=== PATIENT | female | born 1980 | race Two or more races ===

== ENCOUNTER 2018-12-01 21:27 | Emergency (ER) | payer MEDICAID, OTHER ==
[~2018-12-01] VITALS: Ht 170.2 cm; Wt 104.3 kg
[~2018-12-01 21:27] MED LIST: HYDR-4683 PO; IBUP800T24 PO
[2018-12-02] MEDS ORDERED: DexAMETHasone SOD PHOS 10MG/1ML VIAL INJ IM ONE (01:45)
[2018-12-02] MEDS ORDERED: HYDROcodone-ACET 10/325MG TAB PO ONE (01:45)
[2018-12-02 01:57] VITALS: BP 157/82
== END 2018-12-02 02:34 | disposition home or self-care (01) ==
LOC: ER 21:27
DX: S02.2XXA Fracture of nasal bones, initial encounter for closed fracture (principal); S00.03XA Contusion of scalp, initial encounter; Z90.49 Acquired absence of other specified parts of digestive tract; W19.XXXA Unspecified fall, initial encounter; Y93.89 Activity, other specified; Y99.8 Other external cause status; Y92.89 Other specified places as the place of occurrence of the external cause
CPT/HCPCS: 70450; 70486; 72125; 96372; 99284; J1100

== ENCOUNTER 2021-01-28 19:08 | Emergency (ER) | payer OTHER ==
[~2021-01-28] VITALS: Ht 172.7 cm; Wt 117.9 kg
[~2021-01-28 19:08] MED LIST changes: -HYDR-4683 PO; +HYDR-4833 PO; -IBUP800T24 PO; +IBUP800T27 PO
[2021-01-28] MEDS: cloNIDine HCL 0.1 MG TAB PO ONE ×2 (19:30→23:01)
[2021-01-28] MEDS ORDERED: ONDANSETRON HCL 4 MG/2 ML VIAL IV ONE (21:30)
[2021-01-28] MEDS ORDERED: MORPHINE SULFATE 4 MG/ML SYR/VIAL IV ONE (21:30)
[2021-01-28 21:49] LABS: Basophils # (auto) 0.1 10 ^3/uL (0-0.2); Basophils % (auto) 1.1 % (0.0-2.0); Eosinophils # (auto) 0.1 10 ^3/uL (0-0.8); Eosinophils % (auto) 2.1 % (0.0-7.0); Hematocrit 47.6 % (36.0-46.0); Hemoglobin 16.7 g/dL (12.2-16.2); Lymphocytes % (auto) 34.5 % (10.0-50.0); Mean Corpuscular Hemoglobin 30.8 pg (28.0-32.0); Mean Corpuscular Volume 88.1 fL (80.0-100.0); Monocytes # (auto) 0.4 10 ^3/uL (0-1.3); Monocytes % (auto) 7.3 % (0.0-12.0); Neutrophils # (auto) 3.3 10 ^3/uL (1.6-8.6); Nucleated Red Blood Cells % 0.1 %; Red Blood Cells 5.41 10^6/uL (4.0-5.20); Red Cell Distribution Width 13.4 % (11.8-14.3); White Blood Cell 5.9 10^3/uL (4.4-10.8)
[2021-01-28 22:09] LABS: Urine Bacteria FEW /hpf (None Seen); Urine Blood 1+ /uL (Negative); Urine Specific Gravity 1.044 (1.001-1.035); Urine WBC 1 /hpf (0 - 5)
[2021-01-28 22:09] LABS: Albumin 3.8 g/dL (3.4-5.0); BUN/Creatinine Ratio 18.1; Calcium 9.3 mg/dL (8.5-10.1); Potassium 3.8 mmol/L (3.5-5.1)
[2021-01-28 22:13] LABS: CRP High Sensitivity 0.54 mg/dL (< 0.3)
[2021-01-28 22:33] LABS: Bilirubin, Total 0.4 mg/dL (0.2-1.0); Total Protein 8.1 g/dL (6.4-8.2)
[2021-01-29 02:00] VITALS: BP 133/62
== END 2021-01-29 03:34 | disposition home or self-care (01) ==
LOC: ER 19:08
DX: R10.9 Unspecified abdominal pain (principal); R06.02 Shortness of breath; E11.9 Type 2 diabetes mellitus without complications; Z90.49 Acquired absence of other specified parts of digestive tract; Z88.1 Allergy status to other antibiotic agents
CPT/HCPCS: 36415; 71046; 74176; 80053; 81001; 82728; 82962; 85025; 85049; 86141; 87426; 96374; 96375; 99285; J2270; J2405

== ENCOUNTER 2024-12-24 00:17 | Emergency (ER) | payer OTHER ==
[~2024-12-24] VITALS: Ht 172.7 cm; Wt 95.0 kg
[~2024-12-24 00:17] MED LIST changes: +IBUP-1456 PO; -IBUP800T27 PO
[2024-12-24] MEDS: MORPHINE SULFATE 4 MG/ML SYR/VIAL IM ONE (00:30)
[2024-12-24] MEDS: ONDANSETRON ODT 4 MG TAB PO ONE (00:43)
[2024-12-24 00:50] LABS: Basophils # (auto) 0.1 10 ^3/uL (0-0.2); Basophils % (auto) 0.6 % (0.0-2.0); Eosinophils # (auto) 0 10 ^3/uL (0-0.8); Eosinophils % (auto) 0.5 % (0.0-7.0); Hematocrit 48.6 % (36.0-46.0); Hemoglobin 17.1 g/dL (12.2-16.2); Lymphocytes # (auto) 2.4 10 ^3/uL (0.4-5.4); Lymphocytes % (auto) 27.6 % (10.0-50.0); Mean Corpuscular Hemoglobin 30.5 pg (28.0-32.0); Mean Corpuscular Hgb Conc. 35.2 g/dL (32.0-36.0); Mean Corpuscular Volume 86.6 fL (80.0-100.0); Monocytes # (auto) 0.5 10 ^3/uL (0-1.3); Monocytes % (auto) 5.6 % (0.0-12.0); Neutrophils # (auto) 5.6 10 ^3/uL (1.6-8.6); Neutrophils % (auto) 65.7 % (37.0-80.0); Nucleated Red Blood Cells % 0.2 %; Platelet Count (auto) 260 10^3/uL (140-450); Red Cell Distribution Width 13.4 % (11.8-14.3); White Blood Cell 8.5 10^3/uL (4.4-10.8)
[2024-12-24] MEDS: MORPHINE SULFATE 4 MG/ML SYR/VIAL IV ONE (01:01)
[2024-12-24 01:09] LABS: Alanine Aminotransferase 16 U/L (7-40); Anion Gap 14 (5-15); Aspartate Aminotransferase 15 U/L (13-40); BUN/Creatinine Ratio 14.6 (10.0-20.0); Bilirubin, Total 0.7 mg/dL (0.2-1.0); Blood Urea Nitrogen 14 mg/dL (9-23); Calcium 10.4 mg/dL (8.7-10.4); Carbon Dioxide 23 mmol/L (20-31); Chloride 103 mmol/L (98-107); Sodium 140 mmol/L (136-145); Total Protein 8.2 g/dL (5.7-8.2)
[2024-12-24 01:13] LABS: Albumin 5.2 g/dL (3.2-4.8); Alkaline Phosphatase 44 U/L (46-116); Glucose 139 mg/dL (74-106); Potassium 3.1 mmol/L (3.5-5.1)
--- NOTE | 2024-12-24 01:35 | DVH ---
Exam: CT CT AB PEL WO CON-NO ORAL OR IV History: abd pain Comparison Study: None Technique: Multidetector spiral CT of the abdomen was performed from lung bases to pubic symphysis. I maging was performed without IV contrast. Axial, coronal and sagittal multiplanar reformats were obta ined from the axial data set by the technologist. Radiation Dose : 1. Abdomen/Pelvis: CTDIvol 17 mGy, DLP 966 mGy*cm. Findings: Evaluation of solid organs is limited due to lack of intravenous contrast use. Lung Bases: No acute or significant lung base finding. Normal heart size. No pleural or pericardial effusion. Liver: The liver is normal in size. No focal lesions. Gallbladder and Biliary Tree: Gallbladder is surgically absent. Spleen: Unremarkable Pancreas: The pancreas is grossly normal in appearance. Adrenal Glands: Unremarkable Kidneys: Kidneys are grossly normal without calculi or hydronephrosis. Bladder: Grossly unremarkable for degree of distention. Bowel: The stomach is grossly normal in appearance. Small bowel and colon are normal in caliber and d istribution. Normal appendix is visualized in the right lower quadrant without findings of appendicit is. Liquid stool throughout the colon. Ascites: Absent Lymphadenopathy: No mesenteric, retroperitoneal or periportal lymphadenopathy. Abdominal Wall and Mesentery: Unremarkable. Vasculature: The visualized abdominal aorta is normal in size and caliber. Evaluation of abdominal a nd pelvic vessels is limited due to lack of intravenous contrast. Pelvic Organs: Unremarkable Musculoskeletal: No aggressive focal bony lesions, acute fractures or dislocation. IMPRESSION: No acute abdominal or pelvic findings Liquid stool throughout the colon concerning for diarrheal state. END IMPRESSION:
--- NOTE | 2024-12-24 01:40 | ED.PDOC ---
History of Present Illness HPI Comments 44 y/o obese F presents with 3x day history of headache. She also endorses of 10/10 abdominal pain, with associated nausea, vomiting, and diarrhea, that began at around 2100, last night. She reports no modifiers. States on pain feeling similar to when she needed her gallbladder removed for in the past. Denies any bloody or bilious vomitus, urinary symptoms, fever, chills, dizziness, or further associated symptoms. Chief Complaint: Chest Pain Time Seen by MD: 00:20 Primary Care Provider: THOMAS Reviewed Notes: Nurses Notes, Medications, Allergies Allergies: Coded Allergies: Amoxicillin (Verified Allergy, Mild, 01/28/21) PT SATTES SHE GETS YEAST INFECTIONS WHEN TAKING AMOXICILLIN Home Meds Reported Medications Hydrocodone-Acetaminophen (Woodman 5/325MG) 1 Tab Tb, 1 TAB PO BIDP 07/22/13 Ibuprofen (Ibuprofen) 800 Mg Tab, 800 MG PO Q8HP, TAB 07/22/13 Information Source: Patient Mode of Arrival: Ambulatory Severity: Moderate Timing: Days Duration: Since onset Prehospital treatment: None Past Medical History PAST MEDICAL HISTORY: DM Surgical History: Cholecystectomy PRODUCTION INTERN History: No Pertinent PRODUCTION INTERN History Family History Family History: Family hx of heart stanley Social History Smoker: Non-Smoker Alcohol: Sober Drugs: Denies Drug Use Lives In: Home All Other Systems: Reviewed and Negative (Comprehensive systems review obtained and negative except for what is stated in the HPI.) Physical Exam General Appearance: Moderate Distress, Obese HEENT: Normal ENT Inspection, Pharynx Normal, TMs Normal Neck: Full Range of Motion, Non-Tender, Normal, Normal Inspection Respiratory: Chest Non-Tender, Lungs Clear, No Accessory Muscle Use, No Respiratory Distress, Normal Breath Sounds Cardiovascular: No Edema, No JVD, No Murmur, No Gallop, Normal Peripheral Pulses, Regular Rate/Rhythm Breast Exam: Deferred Gastrointestinal: Epigastric (mid-epigastric tenderness ), No Organomegaly, No Pulsatile Mass, Normal Bowel Sounds, Soft, Tenderness (mid-epigastric region ) Genitalia: Deferred Pelvic: Deferred Rectal: Deferred Extremities: No calf tenderness, Normal capillary refill, Normal inspection, Normal range of motion, Non-tender, No pedal edema Musculoskeletal : Apperance: Normal Neurologic: Alert, 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 Was a procedure done?: No Differential Dx Considerations may include: gastritis, gastroenteritis, GERD, PUD, cholelithiasis, viral syndrome, , UTI, among others X-Ray, Labs, Meds, VS Vital Signs Date Time Temp Pulse Resp B/P (MAP) Pulse Ox O2 Delivery O2 Flow Rate FiO2 12/24/24 01:01 122 22 138/95 12/24/24 00:23 110 12/24/24 00:17 97.8 122 22 138/95 (109) 100 97.8 Lab Test 12/24/24 01:33 12/24/24 00:32 Range/Units Troponin I High Sensitivity Pending < 3 L </=34 ng/L White Blood Count 8.5 4.4-10.8 10^3/uL Red Blood Count 5.60 H 4.0-5.20 10^6/uL Hemoglobin 17.1 H 12.2-16.2 g/dL Hematocrit 48.6 H 36.0-46.0 % Mean Corpuscular Volume 86.6 80.0-100.0 fL Mean Corpuscular Hemoglobin 30.5 28.0-32.0 pg Mean Corpuscular Hemoglobin Concent 35.2 32.0-36.0 g/dL Red Cell Distribution Width 13.4 11.8-14.3 % Platelet Count 260 140-450 10^3/uL Mean Platelet Volume 9.4 6.9-10.8 fL Neutrophils (%) (Auto) 65.7 37.0-80.0 % Lymphocytes (%) (Auto) 27.6 10.0-50.0 % Monocytes (%) (Auto) 5.6 0.0-12.0 % Eosinophils (%) (Auto) 0.5 0.0-7.0 % Basophils (%) (Auto) 0.6 0.0-2.0 % Neutrophils # (Auto) 5.6 1.6-8.6 10 ^3/uL Lymphocytes # (Auto) 2.4 0.4-5.4 10 ^3/uL Monocytes # (Auto) 0.5 0-1.3 10 ^3/uL Eosinophils # (Auto) 0 0-0.8 10 ^3/uL Basophils # (Auto) 0.1 0-0.2 10 ^3/uL Nucleated Red Blood Cells 0.2 % Sodium Level 140 136-145 mmol/L Potassium Level 3.1 L 3.5-5.1 mmol/L Chloride Level 103 98-107 mmol/L Carbon Dioxide Level 23 20-31 mmol/L Anion Gap 14 5-15 Blood Urea Nitrogen 14 9-23 mg/dL Creatinine 0.96 0.550-1.02 mg/dL Glomerular Filtration Rate Calc 76 >90 mL/min BUN/Creatinine Ratio 14.6 10.0-20.0 Serum Glucose 139 H 74-106 mg/dL Calcium Level 10.4 8.7-10.4 mg/dL Total Bilirubin 0.7 0.2-1.0 mg/dL Aspartate Amino Transferase (AST) 15 13-40 U/L Alanine Aminotransferase (ALT) 16 7-40 U/L Alkaline Phosphatase 44 L 46-116 U/L Total Protein 8.2 5.7-8.2 g/dL Albumin 5.2 H 3.2-4.8 g/dL Current Medications Medications (Trade) Dose Ordered Sig/Eryn Route Start Time Stop Time Status Last Admin Ondansetron HCl (Zofran Po) 4 mg ONCE ONCE PO 12/24/24 00:30 12/24/24 00:31 DC 12/24/24 00:43 Morphine Sulfate 4 mg ONCE ONCE IV 12/24/24 00:45 12/24/24 00:46 DC 12/24/24 01:01 X-Ray, Labs, Meds, VS Comment Imaging: X-rays and CT scans were reviewed and interpreted by this provider, imaging shows no fractures and no pathological disease. Pending radiology review. Laboratory: Labs reviewed and interpreted by this provider. No significant abnormalities noted. Patient has prior medical visits reviewed. Med reconciliation performed Vital signs reviewed Time of 1ST Reevaluation: 00:50 Reevaluation 1ST: Unchanged Patient Education/Counseling: Diagnosis, Treatment, Need For Follow Up (Follow up in the emergency department in the next 4-6 hours if symptoms worse. Follow up in the next 24 hours if symptoms have not improved. Try and make an appointment with PCP next available appointment.) Family Education/Counseling: No Family Present Departure 1 Departure Time of Disposition: 02:18 Impression: Primary Impression: Gastroenteritis Additional Impression: Acute diarrhea Disposition: 01 HOME / SELF CARE / HOMELESS Condition: Fair e-Prescriptions Loperamide HCl (Loperamide HCl) 2 Mg Tab 2 MG PO TID PRN, #12 TAB Prov: CHRIS CULLEN 12/24/24 Dicyclomine Hcl (BENTYL CAPSULE) 10 Mg Cp 1 CAP PO Q6HPRN, #40 CAP 3 Refills Prov: CHRIS CULLEN 12/24/24 Discharged With: Self Critical Care Note Critical Care Time?: No Stability Stability form required: No Heart Score Heart Score: Heart Score Response (Comments) Value History N/A 0 EKG N/A 0 Age N/A 0 Risk Factors N/A 0 Troponin N/A 0 Total 0 I personally scribed for CHRIS CULLEN ([email or web address]) on 12/24/24 at 01:40. Electronically submitted by González Hernandez [email or web address]). CHRIS CULLEN December 24, 2024 01:40
[2024-12-24] MEDS ORDERED: LOPE1TAB9 PO (02:19)
[2024-12-24] MEDS ORDERED: DICY10CA PO (02:19)
[2024-12-24 02:44] VITALS: TEMP 97.6
[2024-12-24] MEDS: LIDOCAINE VISCOUS 2% 15ML UD MT ONE (02:53)
[2024-12-24] MEDS: MAALOX PLUS or MAALOX 30 ML PO ONE (02:54)
[2024-12-24 03:04] VITALS: PULSE 99; RESP 12; O2SAT 96
[2024-12-24 03:08] VITALS: BP 107/71; PULSE 99; RESP 12
--- NOTE | 2024-12-24 05:54 | ECG ---
[facility] Test Date: 2024-12-24 Test Time: 00:23:53 Pat Name: MAN GILLIS Department: ed Room: Gender: F Tool Grinder: mitzy : 1980 Requested By: EMERGENCY EMERGENCY Order Number: [id number] Reading MD: Measurements Intervals [place] Rate: 110 P: 73 LA: 167 QRS: 81 QRSD: 83 T: 56 QT: 342 QTc: 463 Interpretive Statements Sinus tachycardia Please click the below link to view image of tracing.
== END 2024-12-24 03:09 | disposition home or self-care (01) ==
LOC: ER 00:17
DX: K52.9 Noninfective gastroenteritis and colitis, unspecified (principal); E11.9 Type 2 diabetes mellitus without complications; E66.9 Obesity, unspecified; Z79.899 Other long term (current) drug therapy; Z90.49 Acquired absence of other specified parts of digestive tract; Z88.0 Allergy status to penicillin
CPT/HCPCS: 36415; 74176; 80053; 84484; 85025; 93005; 96374; 99285; J2270; Q0162